=== PATIENT | male | born 1995 | race Caucasian/White ===

== ENCOUNTER 2021-10-02 04:12 | Emergency (ER) | payer OTHER ==
[~2021-10-02 04:12] MED LIST: AUGMENTIN 875-1 EACH PO; BACTRIM DS TAB1 EACH PO; KEFLEX250 MG PO; MOTRIN600 MG PO
== END 2021-10-02 06:27 | disposition home or self-care (01) ==
LOC: FER 04:12
DX: S51.811A Laceration without foreign body of right forearm, initial encounter (principal); F17.210 Nicotine dependence, cigarettes, uncomplicated; Z23 Encounter for immunization; W26.0XXA Contact with knife, initial encounter; Y92.009 Unspecified place in unspecified non-institutional (private) residence as the place of occurrence of the external cause; Z28.310 Unvaccinated for COVID-19
CPT/HCPCS: 90471; 90715

== ENCOUNTER 2022-01-02 12:39 | Emergency (ER) | payer OTHER ==
[2022-01-02] MEDS ORDERED: ILOTYCIN1 GM EYERT (14:33)
== END 2022-01-02 14:45 | disposition home or self-care (01) ==
LOC: FER 12:39
DX: T15.01XA Foreign body in cornea, right eye, initial encounter (principal); F17.210 Nicotine dependence, cigarettes, uncomplicated; Z28.310 Unvaccinated for COVID-19; X58.XXXA Exposure to other specified factors, initial encounter; Y93.89 Activity, other specified